=== PATIENT | female | born 1995 | race Caucasian/White ===

== ENCOUNTER 2018-01-15 12:04 | Emergency (ER) | payer SELFPAY ==
[2018-01-15 12:38] LABS: ABS Basophils 0 10^3/ul (0-0.2); ABS Eosinophils 0.1 10^3/ul (0-0.6); ABS Lymphocytes 1.6 10^3/ul (1.0-4.8); ABS Monocytes 0.3 10^3/ul (0-0.8); ABS Neutrophils 4.6 10^3/ul (1.5-7.7); ABS Nucleated RBC 0 10^3/ul; Hematocrit 36 % (35-47); Hemoglobin 12.4 g/dl (12.0-16.0); Lymphocyte % 24.1 % (25-47); Mean Corpuscular HGB Conc 34 g/dl (31-36); Mean Corpuscular Hemoglobin 29 pg (27-31); Mean Corpuscular Volume 83 fL (80-97); Mean Platelet Volume 7 um3 (7.4-10.4); Nucleated Red Blood Cells % 0; Platelet Count 314 10^3/ul (150-450); Red Blood Count 4.34 10^6/ul (4.0-5.4); Red Cell Distribution Width 13 % (10.5-15); White Blood Count 6.7 10^3/ul (3.5-10.8)
[2018-01-15 12:56] LABS: EGFR Non-African American 126.2 (>60)
[2018-01-15 13:23] LABS: Urine Appearance Clear; Urine Blood Negative (Negative); Urine Color Yellow; Urine Ketones 1+ (Negative); Urine Protein Negative (Negative); Urine Specific Gravity 1.016 (1.010-1.030); Urine Urobilinogen Negative (Negative)
--- NOTE | 2018-01-15 14:26 | RAD ---
INDICATION: Right upper quadrant pain COMPARISON: None TECHNIQUE: Longitudinal and transverse scans of the right upper quadrant were obtained. Doppler interrogation of the hepatic and portal venous system was performed. FINDINGS: Liver: The liver is enlarged and mildly heterogeneous in echotexture. There are no focal masses. The liver measures 19.7 cm in cephalocaudal dimension. Vessels: There is normal hepatic and portal venous flow. Bile ducts: There is no evidence of intrahepatic or extrahepatic ductal dilatation. The common duct measures 0.7 cm. Gallbladder: The sonographic appearance of the gallbladder is normal. There is no evidence of cholelithiasis, thickening of the gallbladder wall, or pericholecystic fluid. Pancreas: The visualized pancreas appears normal Right kidney: The right kidney is normal in size and echogenicity. There are no masses or calculi. There is no evidence of hydronephrosis. The right kidney measures 11.3 x 4.6 x 5.9 cm. IVC and aorta: The aorta and superior vena cava appear normal. Fluid: There is no ascites. Other: None. IMPRESSION: HEPATOMEGALY WITH PRESUMED HEPATIC STEATOSIS. NORMAL GALLBLADDER.
--- NOTE | 2018-01-15 14:46 | ED ---
Abdominal Pain/Female - HPI Summary HPI Summary: 22 female presents to ED with complaints of RLQ pain that began while having sexual intercourse earlier today. States pain was sharp and shooting. Last about 2 hours and has since improved. Is not in any significant pain currently. Denies nausea, vomiting, fever, urinary symptoms. Normal bowel movements. Denies vaginal discharge, itching or STD concern. No other complaints at this time. Never had this pain before. Denies ovarian cyst history. No medications. No PMHx. - History of Current Complaint Chief Complaint: EDAbdPain Stated Complaint: ABD PAIN Time Seen by Provider: 01/15/18 13:37 Hx Obtained From: Patient Onset/Duration: Sudden Onset, Lasting Hours, Resolved Timing: Constant Severity Initially: Moderate Severity Currently: None Pain Intensity: 0 Pain Scale Used: 0-10 Numeric Location: Discrete At: RLQ Radiates: No Character: Sharp Aggravating Factor(s): Movement Alleviating Factor(s): Nothing Associated Signs and Symptoms: Negative: Constipation, Blood in Stool, Urinary Symptoms, Decreased Appetite, Vaginal Bleeding, Vaginal Discharge, Nausea, Vomiting, Diarrhea Allergies/Adverse Reactions: Allergies Allergy/AdvReac Type Severity Reaction Status Date / Time No Known Allergies Allergy Verified 01/15/18 12:09 Home Medications: Home Medications FLUoxetine CAP* [PROzac CAP*] 20 mg PO QAM 01/15/18 [History Confirmed 01/15/18] Guaifenesin/Pseudoephedrne HCl [Mucinex D ER Tablet] 1 each PO Q12HR PRN [History Confirmed 01/15/18] Norgestimate-Ethinyl Estradiol [Tri-Previfem Tablet] 1 each PO DAILY 01/15/18 [ History Confirmed 01/15/18] PMH/Surg Hx/FS Hx/Imm Hx Endocrine/Hematology History: Denies: Hx Diabetes Cardiovascular History: Denies: Hx Hypertension Respiratory History: Denies: Hx Asthma - Surgical History Surgery Procedure, Year, and Place: n/a - Immunization History Immunizations Up to Date: Yes Infectious Disease History: No Infectious Disease History: Denies: Traveled Outside the [place] in Last 30 Days - Family History Known Family History: Positive: None - Social History Alcohol Use: Weekly Substance Use Type: Reports: Marijuana Substance Use Comment - Amount & Last Used: 1 week Smoking Status (MU): Never Smoked Tobacco Review of Systems Constitutional: Negative Cardiovascular: Negative Respiratory: Negative Positive: Abdominal Pain - RLQ Genitourinary: Negative All Other Systems Reviewed And Are Negative: Yes Physical Exam Triage Information Reviewed: Yes Vital Signs On Initial Exam: Initial Vitals Temp Pulse Resp BP Pulse Ox 96.9 F 74 20 113/71 100 01/15/18 12:06 01/15/18 12:06 01/15/18 12:06 01/15/18 12:06 01/15/18 12:06 Vital Signs Reviewed: Yes Appearance: Positive: Well-Appearing, No Pain Distress, Well-Nourished Skin: Positive: Warm, Skin Color Reflects Adequate Perfusion, Dry. Negative: Cold, Numb, Cyanosis @, Jaundiced Head/Face: Positive: Normal Head/Face Inspection Eyes: Positive: Conjunctiva Clear ENT: Positive: Pharynx normal Neck: Positive: Supple, Nontender Respiratory/Lung Sounds: Positive: Clear to Auscultation, Breath Sounds Present. Negative: Rales, Rhonchi, Wheezes Cardiovascular: Positive: Normal, RRR, Pulses are Symmetrical in both Upper and Lower Extremities. Negative: Murmur, Rub Abdomen Description: Positive: Nontender, No Organomegaly, Soft. Negative: Bruit, CVA Tenderness (R), CVA Tenderness (L), Distended, McBurney's Point Tenderness, Peritoneal Signs, Pulsatile Mass Bowel Sounds: Positive: Present Pelvic Exam: Positive: external exam normal, bimanual exam normal, no cerv. motion tender - however pelvic exam was painful, no masses, cervicitis, discharge - scant of clear/yellow from os. Negative: active bleeding, blood, tender adnexa, tender uterus, other Musculoskeletal: Positive: Normal, Strength/ROM Intact Neurological: Positive: Normal, Sensory/Motor Intact, Alert, Oriented to Person Place, Time Diagnostics - Vital Signs Vital Signs Temp Pulse Resp BP Pulse Ox 01/15/18 12:06 96.9 F 74 20 113/71 100 - Laboratory Lab Results: Lab Results 01/15/18 01/15/18 01/15/18 Range/Units 12:26 12:26 12:26 WBC 6.7 (3.5-10.8) 10^3/ul RBC 4.34 (4.0-5.4) 10^6/ul Hgb 12.4 (12.0-16.0) g/dl Hct 36 (35-47) % MCV 83 (80-97) fL MCH 29 (27-31) pg MCHC 34 (31-36) g/dl RDW 13 (10.5-15) % Plt Count 314 (150-450) 10^3/ul MPV 7 L (7.4-10.4) um3 Neut % (Auto) 69.3 (38-83) % Lymph % (Auto) 24.1 L (25-47) % [place] % (Auto) 5.1 (1-9) % Eos % (Auto) 1.0 (0-6) % Baso % (Auto) 0.5 (0-2) % Absolute Neuts (auto) 4.6 (1.5-7.7) 10^3/ul Absolute Lymphs (auto) 1.6 (1.0-4.8) 10^3/ul Absolute Monos (auto) 0.3 (0-0.8) 10^3/ul Absolute Eos (auto) 0.1 (0-0.6) 10^3/ul Absolute Basos (auto) 0 (0-0.2) 10^3/ul Absolute Nucleated RBC 0 10^3/ul Nucleated RBC % 0 Sodium 132 L (133-145) mmol/L Potassium 3.4 L (3.5-5.0) mmol/L Chloride 99 L (101-111) mmol/L Carbon Dioxide 25 (22-32) mmol/L Anion Gap 8 (2-11) mmol/L BUN 7 (6-24) mg/dL Creatinine 0.60 (0.51-0.95) mg/dL Est GFR ( Amer) 162.3 (>60) Est GFR (Non-Af Amer) 126.2 (>60) BUN/Creatinine Ratio 11.7 (8-20) Glucose 102 H (70-100) mg/dL Lactic Acid 1.1 (0.5-2.0) mmol/L Calcium 9.3 (8.6-10.3) mg/dL Total Bilirubin 0.30 (0.2-1.0) mg/dL AST 16 (13-39) U/L ALT 15 (7-52) U/L Alkaline Phosphatase 65 (34-104) U/L C-Reactive Protein 16.22 H (< 5.00) mg/L Total Protein 7.9 (6.4-8.9) g/dL Albumin 4.3 (3.2-5.2) g/dL Globulin 3.6 (2-4) g/dL Albumin/Globulin Ratio 1.2 (1-3) Lipase 16 (11.0-82.0) U/L Urine Color Urine Appearance Urine pH (5-9) Ur Specific [place] (1.010-1.030) Urine Protein (Negative) Urine Ketones (Negative) Urine Blood (Negative) Urine Nitrate (Negative) Urine Bilirubin (Negative) Urine Urobilinogen (Negative) Ur Leukocyte Esterase (Negative) Urine WBC (Auto) (Absent) Urine RBC (Auto) (Absent) Ur Squamous Epith Cells (Absent) Urine Bacteria (Absent) Urine Glucose (Negative) 01/15/18 Range/Units 12:30 WBC (3.5-10.8) 10^3/ul RBC (4.0-5.4) 10^6/ul Hgb (12.0-16.0) g/dl Hct (35-47) % MCV (80-97) fL MCH (27-31) pg MCHC (31-36) g/dl RDW (10.5-15) % Plt Count (150-450) 10^3/ul MPV (7.4-10.4) um3 Neut % (Auto) (38-83) % Lymph % (Auto) (25-47) % [place] % (Auto) (1-9) % Eos % (Auto) (0-6) % Baso % (Auto) (0-2) % Absolute Neuts (auto) (1.5-7.7) 10^3/ul Absolute Lymphs (auto) (1.0-4.8) 10^3/ul Absolute Monos (auto) (0-0.8) 10^3/ul Absolute Eos (auto) (0-0.6) 10^3/ul Absolute Basos (auto) (0-0.2) 10^3/ul Absolute Nucleated RBC 10^3/ul Nucleated RBC % Sodium (133-145) mmol/L Potassium (3.5-5.0) mmol/L Chloride (101-111) mmol/L Carbon Dioxide (22-32) mmol/L Anion Gap (2-11) mmol/L BUN (6-24) mg/dL Creatinine (0.51-0.95) mg/dL Est GFR ( Amer) (>60) Est GFR (Non-Af Amer) (>60) BUN/Creatinine Ratio (8-20) Glucose (70-100) mg/dL Lactic Acid (0.5-2.0) mmol/L Calcium (8.6-10.3) mg/dL Total Bilirubin (0.2-1.0) mg/dL AST (13-39) U/L ALT (7-52) U/L Alkaline Phosphatase (34-104) U/L C-Reactive Protein (< 5.00) mg/L Total Protein (6.4-8.9) g/dL Albumin (3.2-5.2) g/dL Globulin (2-4) g/dL Albumin/Globulin Ratio (1-3) Lipase (11.0-82.0) U/L Urine Color Yellow Urine Appearance Clear Urine pH 9.0 (5-9) Ur Specific [place] 1.016 (1.010-1.030) Urine Protein Negative (Negative) Urine Ketones 1+ H (Negative) Urine Blood Negative (Negative) Urine Nitrate Negative (Negative) Urine Bilirubin Negative (Negative) Urine Urobilinogen Negative (Negative) Ur Leukocyte Esterase Negative (Negative) Urine WBC (Auto) Trace(0-5/hpf) (Absent) Urine RBC (Auto) Trace(0-2/hpf) (Absent) Ur Squamous Epith Cells Present H (Absent) Urine Bacteria Absent (Absent) Urine Glucose Negative (Negative) Result Diagrams: 01/15/18 12:26 01/15/18 12:26 Lab Statement: Any lab studies that have been ordered have been reviewed, and results considered in the medical decision making process. - Ultrasound No standard instances Ultrasound Interpretation: No Acute Changes - Gallbladder: HEPATOMEGALY WITH PRESUMED HEPATIC STEATOSIS. NORMAL GALLBLADDER. Pelvic/appendix:THE APPENDIX IS NOT VISUALIZED. THERE IS NO FREE OR LOCULATED FLUID WITHIN THE RIGHT LOWER QUADRANT. No adnexal masses are noted. Ultrasound Interpretation Completed By: Radiologist Re-Evaluation - Re-Evaluation First Eval Re-Evaluation Time: 16:00 Change: Improved - feeling better, no pain, updated on labs and imaging results. agrees and understands plan. ready to be d/c. Abdominal Pain Fem Course/Dx - Course Course Of Treatment: US obtained of right abdomen, gallbladder, appendix and pelvic/ovaries. all negative. labs negative other than slightly elevated CRP. pelvic preformed appeared normal without CMT other than inflammed cervix surrounding os with scant amount of discharge noted clear/yellow in color. pelvic exam was painful. patient denies high concern for STDs for the past 6 months however is wanting the treatment just prophylactically due to signs/ symptoms. will wait for culture results. urinalysis obtained and unremarkable. no pain medication given as pain spontaneously resolved and appears to only be from sexual intercourse. normal vitals. follow up with obgyn. educated and strongly discussed findings of cervicitis and associated RLQ abdominal pain and dysparenuia. Possible just cervicitis however due to patient wanting treamtent prior to results (although low risk STD concern and does use protection) given azithromycin and ceftriaxone while in ED. Educated risk versus benefits. refrain from intercourse until treamtent is complete and test results recieved. aware of worsening signs and symptoms to watch out for, including worsening pain , vomiting, nausea, fever, in case of additional work up to rule out appey is required although not of concern at this time. Follow up pcp for recheck. - Diagnoses Differential Diagnosis: Positive: Appendicitis, Constipation, Ovarian Cyst - ruptured, Pelvic Inflammatory Disease - STD, Urinary Tract Infection, Other - RLQ abdominal pain, bacterial vaginosis Provider Diagnoses: Dyspareunia, RLQ abdominal pain Discharge - Discharge Plan Condition: Stable Disposition: HOME Patient Education Materials: Cervicitis (ED), Sexually Transmitted Diseases (ED ), Acute Abdominal Pain (ED), Dyspareunia in Women (DC), Ruptured Ovarian Cyst ( ED) Referrals: [facility] [Primary Care Provider] - Nicol Dunlap MD [Medical Doctor] - Additional Instructions: Follow up with OBGYN to rule out other etiology. If you do not hear results they are negative, however if you want to be sure you can call back in 3 days at [phone]. Any new or worsening symptoms please return, as we discussed. Refrain from sexual intercourse until results obtained and further evaluated. ibuprofen for any discomfort.
--- NOTE | 2018-01-15 15:31 | RAD ---
HISTORY: Rule out appendicitis. Right-sided pain COMPARISONS: None TECHNIQUE: Multiple transverse and longitudinal ultrasound images were obtained of the right lower quadrant using grayscale and color Doppler imaging. FINDINGS: The appendix is not visualized. There is no free or loculated fluid within the right lower quadrant. IMPRESSION: THE APPENDIX IS NOT VISUALIZED. THERE IS NO FREE OR LOCULATED FLUID WITHIN THE RIGHT LOWER QUADRANT.
--- NOTE | 2018-01-15 15:35 | RAD ---
Indication: Evaluate for ovarian cyst. Real-time sonography of the pelvis was performed. The uterus measures 8.7 x 4.1 x 5.8 cm. Endometrial echo measures 11 mm. Right ovary measures 3.5 x 2.1 x 2.8 cm. Left ovary measures 3.6 x 1.8 x 2.5 cm. Follicle in the left ovary measuring up to 17 x 16 x 25 mm. IMPRESSION: No adnexal masses are noted.
[2018-01-15] MEDS ORDERED: Lidocaine 1%* 5 ML VIAL ONE (16:14)
[2018-01-15] MEDS: cefTRIAXone VIAL(*) 250 MG VIAL IM ONE (16:23)
[2018-01-15] MEDS: Azithromycin TAB* 250 MG PO ONE (16:24)
[2018-01-15 16:32] VITALS: BP 136/67
--- NOTE | 2018-01-17 13:26 | ED ---
Progress - Progress Note Progress Note: Patient's vaginal culture is positive for Sonia and negative for Gardnerella. Her other STD tests for Trichomonas, Chlamydia, gonorrhea are also negative. Patient was treated empirically in the ED for bacterial STD's however she was not treated for the Sonia. Left message to call. Will also mail letter to home. Shana morley aware. Re-Evaluation - Re-Evaluation First Eval Re-Evaluation Time: 16:00 Change: Improved - feeling better, no pain, updated on labs and imaging results. agrees and understands plan. ready to be d/c. Course/Dx - Course Course Of Treatment: US obtained of right abdomen, gallbladder, appendix and pelvic/ovaries. all negative. labs negative other than slightly elevated CRP. pelvic preformed appeared normal without CMT other than inflammed cervix surrounding os with scant amount of discharge noted clear/yellow in color. pelvic exam was painful. patient denies high concern for STDs for the past 6 months however is wanting the treatment just prophylactically due to signs/ symptoms. will wait for culture results. urinalysis obtained and unremarkable. no pain medication given as pain spontaneously resolved and appears to only be from sexual intercourse. normal vitals. follow up with obgyn. educated and strongly discussed findings of cervicitis and associated RLQ abdominal pain and dysparenuia. Possible just cervicitis however due to patient wanting treamtent prior to results (although low risk STD concern and does use protection) given azithromycin and ceftriaxone while in ED. Educated risk versus benefits. refrain from intercourse until treamtent is complete and test results recieved. aware of worsening signs and symptoms to watch out for, including worsening pain , vomiting, nausea, fever, in case of additional work up to rule out appey is required although not of concern at this time. Follow up pcp for recheck. - Diagnoses Provider Diagnoses: Dyspareunia, RLQ abdominal pain
== END 2018-01-15 16:31 | disposition home or self-care (01) ==
LOC: ED 12:04
DX: N94.10 Unspecified dyspareunia (principal); R10.31 Right lower quadrant pain; R16.0 Hepatomegaly, not elsewhere classified
CPT/HCPCS: 36415; 76705; 76856; 80053; 81003; 83605; 83690; 84702; 85025; 86140; 87480; 87491; 87510; 87591; 87661; 96372; 99282; A9270-GY; J0696